=== PATIENT | female | born 1970 | race Caucasian/White ===

== ENCOUNTER 2019-01-16 04:48 | Inpatient (IN) | payer BC ==
[~2019-01-16] VITALS: Ht 162.6 cm; Wt 80.7 kg
[2019-01-16 04:59] VITALS: Ht 162.6 cm; Wt 80.7 kg
--- NOTE | 2019-01-16 05:09 | NUR ---
PT. IN ED WITH C/O N/V SINCE 1AM TODAY. PT. IS COMING FROM [facility] AND IS ON A 5150 HOLD AFTER JUMPING OFF HER [employer] WHILE IN AN ARGUMENT WITH HER . PT. WAS SEEN AT [place] AFTER FALL ; MEDICALLY CLARED AND SENT TO [facility] FOR REMAINDER OF HOLD. PT. DENIES WANTING TO HURT HERSELF. STATES "I JUST WANTED TO GET AWAY FROM MY ". REPORTS PAIN TO LOWER BACK, RIB AREA, AND STERNUM. WAS GIVEN TYLENOL 650MG PO AT [facility]. LINDA GIBSON, FROM [facility] AT BEDSIDE. ORGINAL 5150 PLACED IN CHART. AWAITING MSE.
--- NOTE | 2019-01-16 05:30 | NUR ---
PT. REPORTS SHE HAS HAD SOTO AND PHOTOPHOBIA OFF AND ON FOR THE PAST 3MONTHS AFTER A BLOCK OF CHEESE FELL OUT OF HER FRIDGE AND HIT HER IN THE HEAD. WEARING SUN GLASSES AT THIS TIME. STATES "THE LIGHTS BOTHER MY EYES".
--- NOTE | 2019-01-16 05:51 | NUR ---
REVIEWED PT. CHART FROM [facility]. PER RECORDS: HEAD CT WAS NORMAL, NOTED TO HAVE L1-L4 TRANSVERSE PROCESS FRACTURES THAT WAS RECOMMENDED TO HAVE OUTPATIENT TREATMENT. ALSO NOTED TO HAVE TRACE LEFT PNEUMOTHORAX WITHOUT INDICATION FOR CHEST TUBE PLACEMENT. PER TRAUMA SURGERY AT [facility], PT. MEDICALLY CLEARED.
--- NOTE | 2019-01-16 06:00 | NUR ---
BELONGINGS REMOVED, LABELED, AND PLACED IN RADIO ROOM
--- NOTE | 2019-01-16 06:04 | NUR ---
DR. GHOSH AT BEDSIDE FOR MSE
--- NOTE | 2019-01-16 06:30 | NUR ---
PT. REPORTS SHE'S HAD A PRODUCTIVE COUGH WITH YELLOW/GREEN PHLEGM "FOR MONTHS". STATES TODAY WHILE AT [facility] SHE HAD TWO EPISODES OF COUGHING UP "BLOODY PHLEGM". NO BLOODY PHLEGM NOTED IN WHILE SHE HAS BEEN IN ED. PT. ALSO REPORTS HX OF COPD AND SMOKES MARIJUANA DAILY.
[2019-01-16 07:04] LABS: microscopic required? NO
--- NOTE | 2019-01-16 07:09 | NUR ---
PT TAKEN TO XRAY VIA W/C
[2019-01-16 07:11] LABS: BASOPHIL % 0.1 % (0-2); PLATELET COUNT 318 x10^3mcL (130-400)
--- NOTE | 2019-01-16 07:11 | NUR ---
REPORT RECEIVED FROM MARC WOODWARD RN, I WILL BE RESUMING CARE OF PT AT THIS TIME
--- NOTE | 2019-01-16 07:15 | NUR ---
REPORT GIVEN TO BELL GARCIA FOR FURTHER CARE OF PATIENT. ALL QUESTIONS AND CONCERNS ADDRESSED.
--- NOTE | 2019-01-16 07:16 | NUR ---
PT RESTING IN POSITION OF COMFORT, RESPS E/U, SITTER AT BEDSIDE, PT IN VIEW OF NURSE STATION, WILL CONTINUE TO MONITOR
--- NOTE | 2019-01-16 07:16 | NUR ---
PT BACK FROM XRAY IN STABLE CONDITION
[2019-01-16 07:20] LABS: CALCIUM 8.8 mg/dL (8.5-10.1); CARBON DIOXIDE 28.2 mmol/L (21-32); CHLORIDE SERUM 104 mmol/L (98-107); CREATININE SERUM 0.8 mg/dL (0.6-1.0); GFR1 > 60 mL/min; GLUCOSE SERUM 108 mg/dL (74-106); POTASSIUM SERUM 4.1 mmol/L (3.5-5.1); SODIUM SERUM 138 mmol/L (136-145)
[2019-01-16 07:24] LABS: ALKALINE PHOSPHATASE 101 U/L (46-116); ALT/SGPT 132 U/L (14-59); AST/SGOT 190 U/L (15-37); BILIRUBIN TOTAL 0.39 mg/dL (0.20-1.00); LIPASE 488 IU/L (73-393); TOTAL PROTEIN, SERUM 6.6 g/dL (6.4-8.2)
[2019-01-16 07:27] LABS: ALBUMIN 3.3 g/dL (3.4-5.0)
[2019-01-16 07:36] LABS: UA SPECIFIC GRAVITY <=1.005 (1.005-1.035); urine erythrocyte NEGATIVE (NEGATIVE)
[2019-01-16 08:05] LABS: AMPHETAMINE QUAL UR NONE DETECTED (See below)
[2019-01-16 08:23] LABS: RED CELL DISTRIBUTION WIDTH 15.1 % (11.5-14.5)
--- NOTE | 2019-01-16 08:27 | NUR ---
PT ASLEEP BUT AROUSABLE, RESPS E/U, SITTER AT BEDSIDE
--- NOTE | 2019-01-16 09:05 | NUR ---
PT RESTING IN POSITION OF COMFORT, RESPS E/U, WARM BLANKET PROVIDED PER PT REQUEST AND COMFORT
[2019-01-16] MEDS ORDERED: ELA25 PO (09:57)
[2019-01-16] MEDS ORDERED: NEURONTIN600 MG PO (09:57)
[2019-01-16] MEDS ORDERED: OLANZAPINE7.5 MG PO (09:58)
[2019-01-16] MEDS ORDERED: WELSR PO (09:58)
[2019-01-16] MEDS ORDERED: BENADRYL ALLERG25 M1 PO (09:59)
--- NOTE | 2019-01-16 10:00 | NUR ---
PT REQUESTING FOOD, MD GHOSH MADE AWARE, PT MUST REMAIN NPO. PT EDUCATED ON NPO STATUS,
--- NOTE | 2019-01-16 10:01 | NUR ---
PT WHEELCHAIRED TO RESTROOM BY SITTER
--- NOTE | 2019-01-16 10:56 | NUR ---
PT REQUESTED TO CALL HER , PT CALM AND COOPERATIVE AT THIS TIME, PT VERBALIZED UNDERSTANDING TO REMAIN COOPERATIVE AND CALM WHILE ON PHONE, PHONE PROVIDED, SITTER AT BEDSIDE
--- NOTE | 2019-01-16 11:59 | NUR ---
PT ASLEEP BUT AROUSABLE, RESPS E/U, PT IN VIEW OF NURSE STATION
--- NOTE | 2019-01-16 12:05 | NUR ---
REPORT GIVEN TO RUFINA GARCIAWATER ATTENDANT RM [id number]
--- NOTE | 2019-01-16 12:56 | NUR ---
PATIENT WAS C/O MODERATE LOWER BACK PAIN, MEDICATED PATIENT WITH NORCO (SEE EMAR), REPOSITION PATIENT FOR COMFORT, EDUCATED PATIENT ON PAIN MANAGEMENT. CALL LIGHT WITHIN REACH, BED IN LOW POSITION, WILL CONTINUE TO MONITOR & MANAGE PAIN.
--- NOTE | 2019-01-16 13:00 | NUR ---
RECEIVED PT FROM ER, PT ADMIT FOR PANCREATITIS, 5150 HOLD. PT IS A/O X4, VERBAL RESPOSNIVE, LUNG SOUND CLEAR BILATERAL, NO COUGH, NO SOB, PT DENY ANY CHEST PAIN OR DISCOMFORT, BOWEL SOUND PRESENT ALL 4 QUADRANTS, NO DISTENTION, NO TENDER, PT C/O NAUSEA BUT NO PAIN, PEDAL PULSE PRESENT BOTH FEET, NO EDEMA, THERE IS ABRASION AT LOW BACK DUE TO PT JUMP OFF FROM [facility] TO ER. PT C/O LOW BACK PAIN 7/, NORCO WAS GIVEN. IV AT RIGHT AC, NO LEAKING, NO INFILTRATION. PT IS CLOSE TO NURSE STATION, SITTER AT BEDSIDE, CLOSE TO MONITOR THE PT.
[2019-01-16 13:25] VITALS: BP 141/82
[2019-01-16 16:35] VITALS: BP 122/81
--- NOTE | 2019-01-16 18:10 | NUR ---
PATIENT RESTING IN BED, NO ACUTE DISTRESS NOTED. PATIENT DENIES PAIN. DENIES N/V. NO ACUTE CHANGES NOTED THROUGH OUT SHIFT, PATIENT IS STABLE. IV TO RAC SALINE LOCK, NO S/S OF INFILTRATION. CALL LIGHT WITHIN REACH, BED IN LOW POSITION. WILL ENDORSE REPORT TO NIGHT RN.
--- NOTE | 2019-01-16 19:51 | NUR ---
PT C/O OF RIB CAGE AND BACK PAIN 5/10 PER ASSESSMENT NO DISTRESS V/S STABLE, TYLENOL 650 MG PO GIVEN PER PRN ORDER, PT VERBALIZES THAT SHE FELL AND HAS SOME BROKEN BONES IN THE RIB AREA, ON 5150 HOLD FOR SUICIDAL IDEATION, NO VERBALIZATION OF HURTING SELF, SITTER AT BEDSIDE, SHIFT ASSESSMENT DONE, NEEDS ATTENDED, CALL LIGHT AT REACH, SAFETY PREC AND REALITY ORIENTATION EMPHASIZED CONT TO MONITOR.
[2019-01-16 20:30] VITALS: BP 116/69
--- NOTE | 2019-01-16 21:43 | NUR ---
PT ASKING FOR NORCO, PAIN MEDS TAKEN EARLIER NOT HELPING, NORCO PO GIVEN REQUESTED PAIN LEVEL 6/10 PER ASSESSMENT, OTHER DUE MEDS GIVEN, CONT TO MONITOR.
[2019-01-17 05:49] VITALS: BP 111/71
--- NOTE | 2019-01-17 06:20 | NUR ---
SLEPT WELL DURING THE SHIFT, AMBULATES TO THE BATHROOM, C/O BACK AND JOINTS PAIN, ASKING FOR NORCO MEDICATION, PAIN LEVEL 7/10, NO DISTRESS V/S STABLE, NO VERBALIZATION OF SUICIDAL IDEATION REMAINED ON CLOSE SUPERVISION, SITTER AT BEDSIDE, WILL ENDORSE TO INCOMING SHIFT.
[2019-01-17 06:51] LABS: CALCIUM 8.5 mg/dL (8.5-10.1); CARBON DIOXIDE 26.1 mmol/L (21-32); CHLORIDE SERUM 108 mmol/L (98-107); CREATININE SERUM 0.7 mg/dL (0.6-1.0); GFR1 > 60 mL/min; GLUCOSE SERUM 90 mg/dL (74-106); POTASSIUM SERUM 3.8 mmol/L (3.5-5.1); SODIUM SERUM 141 mmol/L (136-145)
--- NOTE | 2019-01-17 07:00 | NUR ---
RECEIVED REPORT FROM LANETTE GARCIA, PT RESTING IN BED IN NO ACUTE RESP DISTRESS, SITTER AT BEDSIDE
[2019-01-17 07:06] LABS: BASOPHIL % 0.5 % (0-2); PLATELET COUNT 282 x10^3mcL (130-400)
--- NOTE | 2019-01-17 07:15 | NUR ---
PT IN BED, IN NO ACURE RESP DISTRESS, VERBAL, ROMANSH, ABLE TO MAKE NEEDS KNOWN, NO REDNESS/DISCHARGE, NO DROOP FACE/SLURRED SPEECH, PERRLA, RESP EVEN AND NON-LABORED, CHEST RISE SYMMETRICALLY, MEDSURG, AXOX4, DENIED N/V/D/DIZZINESS, DENIED CP/PRESSURE/SOTO, ON 5150 HOLD, SITTER AT BEDSIDE, SKIN D/W/C, IV PATENT AND NO INFILTRATION, BRP, CONTINENT, ABD ROUND AND NON-TENDER TO TOUCH, BS ACTIVE X 4, LAST BM 01/17/19, SOFT PER PT REPORT, AMBULATORY, PT, ALL NEEDS MET AT THIS TIME, SAFETY PROTOCOL FOLLOWED, CONTINUE TO MONITOR
[2019-01-17 07:17] LABS: RED CELL DISTRIBUTION WIDTH 14.9 % (11.5-14.5)
--- NOTE | 2019-01-17 09:56 | NUR ---
PT IN NO ACUTE RESP DISTRESS, AM MED GIVEN PER MD ORDER VIA EMAR, TAKEN WELL, NO ASE NOTED AT THIS TIME, CONTINUE TO MONITOR
--- NOTE | 2019-01-17 14:19 | NUR ---
PT RESTING IN BED, IN NO ACUTE RESP DISTRESS, SHOWER GIVEN BY NURSING STAFF, ALL NEEDS ADDRESSED AT THIS TIME, SITTER AT BEDSIDE, SAFEY PROTOCOL FOLLOWED, CONTINUE TO MONITOR
[2019-01-17 17:33] VITALS: BP 111/71
--- NOTE | 2019-01-17 18:07 | NUR ---
PT SLEEPING IN BED, WEARING SUNGLASS, IN NO ACUTE RESP DISTRESS, ABLE TO MAKE NEEDS KNOWN, CALM AND COPPERATIVE W/ POC, DENIED SOTO/CP/PRESSURE, DENIED N/V/D/DIZZINESS, NO FACIAL DROOP/SLURRED SPEECH, RESP EVEN AND NON-LABORED, CHEST RISE SYMMETRICALLY, ABD SOFT AND NON-TENDER TO TOUCH, BS ACTIVE X 4, ABLE TO MOVE ALL EXTREMITIES, IV PATENT AND NO INFILTRATION NOTED, SKIN W/D/C, CONTINENT, AMBULATORY, SITTER AT BEDISDE, ALL NEEDS MET AT THIS TIME, SAFETY PROTOCOL FOLLOWED, WILL ENDORSE TO ONCOMING RN
[2019-01-17 18:21] VITALS: BP 126/83
--- NOTE | 2019-01-17 19:10 | NUR ---
REC'D PT FROM DAY NURSE. PT RESTING IN BED. WEARING DARK GLASSES D/T PHOTOPHOBIA. AAOX4, SPEECH CLEAR, FOLLOWS COMMANDS. MED SURG, NO TELE. DENIES CP, DIZZINESS, OR PALPITATIONS. DENIES RESP DISTRESS OR SOB. BREATHING EVEN/UNLABORED ON RA. REPORTS COUGH AT TIMES, RT PROTOCOL. ABD SOFT/ROUND. C/O PAIN AND TENDERNESS TO VERÓNICA LOWER RIBS, SORENESS TO LOWER BACK AND R HIP. 6/10 PAIN, PT WOULD LIKE NORCO WITH HER NIGHT MEDICATIONS. VOIDING FREELY. AMBULATORY. R LOWER BACK ABRASIONS. IV TO RAC FLUSHED AND PATENT. PT ON 5150 HOLD. DENIES ANY SI/HI OR HALLUCINATIONS. SITTER AT BEDSIDE. CALL LIGHT WITHIN REACH, BED AT LOWEST POSITION.
[2019-01-17 20:36] VITALS: BP 115/78
--- NOTE | 2019-01-17 22:45 | NUR ---
SANDY GIVEN FOR PAIN 11/24 TO R HIP AND LOWER BACK. SPOKE TO DR. CRYSTAL AND ASKED TO RECHECK LIPASE IN AM.
--- NOTE | 2019-01-18 01:48 | NUR ---
PT RESTING IN BED WITH EYES CLOSED. NO SIGNS OF DISTRESS NOTED. BREATHING EVEN/UNLABORED ON RA. CALL LIGHT WITHIN REAHC, BED AT LOWEST POSITION, SITTER AT BEDSIDE. WILL CONTINUE TO MONITOR.
--- NOTE | 2019-01-18 04:10 | NUR ---
PT C/O 01/24 LOW BACK, LOWER RIBS, AND R HIP PAIN "SORENESS." TYLENOL GIVEN PER ORDER. WILL MONITOR FOR RELIEF.
[2019-01-18 06:05] LABS: BASOPHIL % 0.5 % (0-2); PLATELET COUNT 298 x10^3mcL (130-400)
[2019-01-18 06:22] LABS: CALCIUM 8.8 mg/dL (8.5-10.1); CARBON DIOXIDE 29.4 mmol/L (21-32); CHLORIDE SERUM 106 mmol/L (98-107); CREATININE SERUM 0.7 mg/dL (0.6-1.0); GFR1 > 60 mL/min; GLUCOSE SERUM 94 mg/dL (74-106); POTASSIUM SERUM 3.9 mmol/L (3.5-5.1); SODIUM SERUM 143 mmol/L (136-145)
--- NOTE | 2019-01-18 06:23 | NUR ---
PT AWAKE AND RESTING IN BED. C/O LOWER BACK, LOWER RIBS, AND R HIP PAIN 12/24. NORCO GIVEN PER ORDER. NO SIGNIFICANT CHANGES DURING SHIFT. PT DENIES ANY SI. BREATHING EVEN/UNLABORED ON RA. CALL LIGHT WITHIN REACH, BED AT LOWEST POSITION, SITTER AT BEDSIDE. WILL ENDORSE TO DAY NURSE.
[2019-01-18 06:41] VITALS: BP 116/78
--- NOTE | 2019-01-18 07:00 | NUR ---
RECEIVED REPORT FROM CINDY RN, PT IN NO ACUTE RESP DISTRESS
[2019-01-18 07:04] LABS: RED CELL DISTRIBUTION WIDTH 15.1 % (11.5-14.5)
--- NOTE | 2019-01-18 07:10 | NUR ---
PT SIT IN CHAIR, IN NO ACURE RESP DISTRESS, VERBAL, FRISIAN, ABLE TO MAKE NEEDS KNOWN, NO REDNESS/DISCHARGE, NO DROOP FACE/SLURRED SPEECH, PERRLA, RESP EVEN AND NON-LABORED, CHEST RISE SYMMETRICALLY, MEDSURG, AXOX4, DENIED N/V/D/DIZZINESS, DENIED CP/PRESSURE/SOTO, ON 5150 HOLD, SITTER AT BEDSIDE, SKIN D/W/C, IV PATENT AND NO INFILTRATION, BRP, CONTINENT, ABD ROUND AND NON-TENDER TO TOUCH, BS ACTIVE X 4, LAST BM TODAY AM, SOFT PER PT REPORT, AMBULATORY, PT, ALL NEEDS MET AT THIS TIME, SAFETY PROTOCOL FOLLOWED, CONTINUE TO MONITOR
[2019-01-18 08:29] VITALS: BP 126/87
--- NOTE | 2019-01-18 09:35 | NUR ---
PT IN NO ACUTE DISTRESS, AM MED GIVEN PER MD ORDER VIA EMAR, TAKEN WELL, NO ASE NOTED AT THIS TIME, EDU A/B S/E OF MED AND REPORT TO AUTHORITY PRN, VERBALLY UNDERSTANING, CONTINUE TO MONITOR
--- NOTE | 2019-01-18 11:40 | NUR ---
PT CONCERNED ABOUT LIPASE LEVEL, PT AWARE OF CURRENT LEVEL, AT BEDSIDE, QUESTIONS ASKED AND ANSWERED, NO FURTHER CONCERNS NEEDED WHEN ASKED, SAFETY PRECAUTION FOLLOWED, PT IN NO ACUTE RESP DISTRESS, CONTINUE TO MONITOR
--- NOTE | 2019-01-18 13:44 | NUR ---
CALLED MEDICAL REFERRAL COORDINATOR REGARDING THE DISCHARGE PLAN, NO ONE ANSWER THE PHONE, LEFT THE MESSAGE.
[2019-01-18 13:57] VITALS: BP 126/87
--- NOTE | 2019-01-18 14:24 | NUR ---
MD MUSTAFALAYLA CLEAR [id number], DC ORDER GIVEN BY COMIC WRITER LESLIE, PT AND AWARE
--- NOTE | 2019-01-18 14:54 | NUR ---
IV REMOVED, IV CATH TIP INTACT, NO ACTIVE BLEEDING NOTED, IN NO ACITE RESP DISTRES, D/C PAPER SIGNED AND KEPT IN CHART, PIC OF ABRASION TO BACK TAKEN AND KEPT IN CHART, PT MADE AWARE THAT IT'S HER RESPONSIBILITY TO F/U WITH PCP, VERBALLY UNDERSTANING, EDU A/B MED AND S/E GIVEN, VERBALLY UNDERSTANDING, RESP EVRN, NO COUGH/SOB, DENIED PAIN/CP/PRESSURE, DENIED N/V/D/DIZZINESS, NO FACIAL DROOP/SLURRED SPEECH NOTED, QUESTION ASKED AND ANSWERED, NO FURTHER CONCERN NEEDED WHEN ASKED, ALL NEEDS ADDRESSED AT THIS TIME, PT ASSISTED TO LOBBY VIA WC BY NURSING STAFF, P/U PT TO HOME.
== END 2019-01-18 14:45 | disposition home or self-care (01) | DRG 392 ==
LOC: ED 04:48 → MU 10:57
PROVIDERS: Emergency Medicine; ADMIT Internal Medicine
DX: R11.2 Nausea with vomiting, unspecified (principal); K50.90 Crohn's disease, unspecified, without complications; E44.0 Moderate protein-calorie malnutrition; F32.9 Major depressive disorder, single episode, unspecified; F12.90 Cannabis use, unspecified, uncomplicated; J44.9 Chronic obstructive pulmonary disease, unspecified; M79.7 Fibromyalgia; Z88.6 Allergy status to analgesic agent; Z88.2 Allergy status to sulfonamides; Z91.040 Latex allergy status; Z98.891 History of uterine scar from previous surgery; Z90.710 Acquired absence of both cervix and uterus; Z68.30 Body mass index [BMI] 30.0-30.9, adult
CPT/HCPCS: 97116-GP; G0378; J1630; J2060; J2405; J3490; J7030; J7620; Q0092